=== PATIENT | female | born 1970 | race Caucasian/White ===

== ENCOUNTER 2017-11-04 09:15 | Emergency (ER) | payer OTHER ==
[~2017-11-04] VITALS: Ht 165.1 cm; Wt 100.6 kg
[2017-11-04 09:43] LABS: HEMATOCRIT 40.1 % (36.0-46.0); HEMOGLOBIN 13.9 G/DL (11.9-15.5); MCH 32.6 PG (29.0-34.0); MCHC 34.7 G/DL (30.0-36.0); MCV 93.9 FL (83-99); PLATELET COUNT 248 K/uL (156-360); RBC DIS.WIDTH-CV 11.7 % (11.8-14.6); RBC DIS.WIDTH-SD 39.9 % (39-53); RED BLOOD COUNT 4.27 M/uL (3.80-5.20); WHITE BLOOD COUNT 5.9 K/uL (4.1-10.2)
[2017-11-04 09:52] LABS: ALBUMIN 4.2 g/dL (3.2-4.8); CHLORIDE 104 mEq/L (99-109); POTASSIUM 4.1 mEq/L (3.7-5.4); SODIUM 137 mEq/L (136-147)
[2017-11-04 09:54] LABS: GLUCOSE 95 mg/dL (70-99); TOTAL PROTEIN 7.3 g/dL (6.4-8.3)
[2017-11-04 09:56] LABS: TOTAL BILIRUBIN 0.5 mg/dL (0.0-1.0)
[2017-11-04 09:58] LABS: ALKALINE PHOSPHATASE 67 IU/L (3-129); CREATININE 0.8 mg/dL (0.6-1.3)
[2017-11-04 09:59] LABS: UREA NITROGEN (BUN) 12 mg/dL (9-23)
[2017-11-04 10:00] LABS: AST (GOT) 18 IU/L (2-34)
[2017-11-04 10:01] LABS: ALT (GPT) 21 IU/L (3-49)
[2017-11-04 10:02] LABS: GFR ESTIMATE (CALCULATED) > 59 mL/min/
[2017-11-04 10:07] LABS: QUANTITATIVE HCG < 4.0 MIU/ML
[2017-11-04 12:08] LABS: APPEARANCE SL.HAZY ((CLEAR)); BILIRUBIN NEGATIVE; BLOOD NEGATIVE; COLOR YELLOW ((YELLOW)); GLUCOSE (STRIP) NEGATIVE; KETONES NEGATIVE; LEUKOCYTES NEGATIVE; NITRITE NEGATIVE; PROTEIN (STRIP) NEGATIVE; SPECIFIC GRAVITY 1.021 (1.000-1.030)
[2017-11-04] MEDS ORDERED: PRILOSEC10 MG PO (12:15)
[2017-11-04 12:21] LABS: BACTERIA NONE SEEN /HPF; EPITHELIAL CELLS 2+ /HPF; MUCUS TRACE /LPF; RED BLOOD CELLS 0-5 /HPF (0-5); UCUL ADDED? NO; WHITE BLOOD CELLS 0-5 /HPF (0-5)
[2017-11-04 12:25] VITALS: BP 165/85
== END 2017-11-04 12:26 | disposition home or self-care (01) ==
LOC: EME 09:15
DX: K29.70 Gastritis, unspecified, without bleeding (principal); K57.30 Diverticulosis of large intestine without perforation or abscess without bleeding
CPT/HCPCS: 74176; 80053; 81003; 84702; 85027; 99281; 99285

== ENCOUNTER 2018-01-30 15:11 | Emergency (ER) | payer OTHER ==
[~2018-01-30] VITALS: Ht 165.1 cm; Wt 104.0 kg
[~2018-01-30 15:11] MED LIST: PRILOSEC10 MG PO
[2018-01-30 16:48] LABS: HEMATOCRIT 37.9 % (36.0-46.0); HEMOGLOBIN 13.4 G/DL (11.9-15.5); MCHC 35.4 G/DL (30.0-36.0); MCV 93.3 FL (83-99); PLATELET COUNT 263 K/uL (156-360); RBC DIS.WIDTH-CV 11.7 % (11.8-14.6); RBC DIS.WIDTH-SD 39.7 % (39-53); RED BLOOD COUNT 4.06 M/uL (3.80-5.20); WHITE BLOOD COUNT 6.1 K/uL (4.1-10.2)
[2018-01-30 16:52] LABS: CHLORIDE 102 mEq/L (99-109); POTASSIUM 4.8 mEq/L (3.7-5.4); SODIUM 136 mEq/L (136-147)
[2018-01-30 16:54] LABS: GLUCOSE 94 mg/dL (70-99)
[2018-01-30 16:58] LABS: CREATININE 0.8 mg/dL (0.6-1.3); GFR ESTIMATE (CALCULATED) > 59 mL/min/
[2018-01-30 16:59] LABS: UREA NITROGEN (BUN) 10 mg/dL (9-23)
[2018-01-30 17:06] LABS: TROP-I INTERPRETATION NEGATIVE; TROPONIN-I < 0.01 ng/mL (0.0-0.30)
[2018-01-30 17:07] LABS: QUANTITATIVE HCG < 4.0 MIU/ML
[2018-01-30] MEDS ORDERED: LISINOPRIL10 MG PO (17:39)
[2018-01-30] MEDS ORDERED: HYDROCHLOROTH12.5 M3 PO (17:39)
[2018-01-30 18:19] VITALS: BP 157/87
== END 2018-01-30 18:19 | disposition home or self-care (01) ==
LOC: EME 15:11
PROVIDERS: Emergency Medicine
DX: R07.89 Other chest pain (principal); I10 Essential (primary) hypertension; Z87.19 Personal history of other diseases of the digestive system; Z83.3 Family history of diabetes mellitus; Z82.49 Family history of ischemic heart disease and other diseases of the circulatory system; Z88.8 Allergy status to other drugs, medicaments and biological substances
CPT/HCPCS: 71046; 73610; 80048; 84484; 84702; 85027; 93005; 99281; 99284